=== PATIENT | female | born 1960 ===

== ENCOUNTER 2021-11-22 14:05 | Emergency (ER) | payer SELFPAY ==
[~2021-11-22] VITALS: Ht 152.4 cm; Wt 59.1 kg
[2021-11-22 14:34] VITALS: TEMP 98.5
[2021-11-22 15:05] VITALS: BP 164/83; PULSE 88
== END 2021-11-22 15:10 | disposition home or self-care (01) ==
LOC: COL.ER 14:05
DX: H93.13 Tinnitus, bilateral (principal); Z28.311 Partially vaccinated for COVID-19